=== PATIENT | male | born 1980 | race Caucasian/White ===

== ENCOUNTER 2021-04-04 18:06 | Emergency (ER) | payer SELFPAY ==
[2021-04-04] MEDS ORDERED: Lidocaine 1% (PF) 30 ML VIAL ONE (20:39)
[2021-04-04] MEDS ORDERED: Diazepam 5 MG TAB ONE (20:39)
[2021-04-04] MEDS ORDERED: Triple Antibiotic Oint 1 GM Packet ONE (22:30)
== END 2021-04-04 22:41 | disposition home or self-care (01) ==
LOC: CSHERS 18:06
DX: S91.311A Laceration without foreign body, right foot, initial encounter (principal); F17.210 Nicotine dependence, cigarettes, uncomplicated; W26.0XXA Contact with knife, initial encounter
CPT/HCPCS: J2001

== ENCOUNTER 2023-02-10 13:52 | Emergency (ER) | payer SELFPAY ==
[~2023-02-10 13:52] MED LIST: Iopamidol 300 61% 100 ML VIAL FS ONE
[2023-02-10] MEDS ORDERED: Ketorolac Tromethamine 30 MG/ML VIAL ONE (14:37)
[2023-02-10 15:00] LABS: #Eosinphils 0.2 10x3/uL (0.0-0.5); #Monocytes 0.5 10x3/uL (0.0-1.1); #Neutrophils 4.5 10x3/uL (1.5-8.4); %Basophils 0.5 % (0.0-2.0); %Eosinophils 2.5 % (0.0-6.0); %Lymphocytes 20.6 % (18.0-47.0); %Monocytes 7.1 % (0.0-10.0); %Neutrophils 69.1 % (40.0-75.0); Hematocrit 43.9 % (38.8-50.0); Mean Corpuscular HGB CONC 34.2 g/dL (32.0-36.0); Mean Corpuscular Hemoglobin 32.2 pg (27.0-33.0); Mean Corpuscular Volume 94.2 fl (81.2-95.1); Mean Platelet Volume 8.5 fl (7.4-10.4); Platelet Count 300 10x3/uL (150-450); RBC Distribution Width 12.9 % (11.5-14.5); Red Blood Cell (RBC) Count 4.66 10x6/uL (4.32-5.72); White Blood Cell (WBC) Count 6.5 10x3/uL (3.5-10.5)
[2023-02-10 15:04] LABS: Bilirubin Neg (Negative); Blood, Urine Negative (Negative); Clarity Clear (Clear); Glucose, Urine (Dipstick) Normal (Negative); Ketone, Urine Negative (Negative); Leukocyte Negative (Negative); Nitrite Negative (Negative); Protein, Urine (Dipstick) 30 mg/dl (Neg-Trace); Specific Gravity, Urine 1.025 (1.005-1.030); Urobilinogen Normal mg/dL (Less than 2)
[2023-02-10 15:33] LABS: ALT (SGPT) 32 U/L (8-55); AST (SGOT) 29 U/L (5-34); Albumin 4.3 g/dL (3.5-5.0); Alkaline Phosphatase 60 U/L (40-110); Anion Gap 14 mmol/L (10-20); BUN (Urea Nitrogen) 22 mg/dL (8.9-20.6); Bilirubin, Total 0.3 mg/dL (0.2-1.2); Calc. Creatinine Clearance 0 mL/min (70-130); Calcium 9.3 mg/dL (7.8-10.44); Carbon Dioxide 21 mmol/L (22-29); Chloride 106 mmol/L (98-107); Estimated GFR 112; Globulin 2.4 g/dL (2.4-3.5); Glucose 112 mg/dL (70-105); Potassium 3.9 mmol/L (3.5-5.1); Protein, Total 6.7 g/dL (6.0-8.3); Sodium 137 mmol/L (136-145)
[2023-02-10 15:34] LABS: CAUTI Indications for Culture Pelvic or flank pain; RBC/HPF None Seen HPF (0-3)
[2023-02-10 15:36] LABS: Bacteria/HPF Rare-Few HPF (None Seen); Squamous Epithelial 0-3 HPF (0-3); WBC/HPF 0-3 HPF (0-3)
[2023-02-10 15:37] LABS: Urine Culture Reflex No No
== END 2023-02-10 17:28 | disposition home or self-care (01) ==
LOC: CSHERS 13:52
DX: M54.41 Lumbago with sciatica, right side (principal); F17.210 Nicotine dependence, cigarettes, uncomplicated
CPT/HCPCS: 72132; 80053; 81001; 85025; 86140; 96374; J1885; Q9967

== ENCOUNTER 2023-03-06 17:27 | Emergency (ER) | payer SELFPAY ==
[2023-03-06] MEDS ORDERED: Ketorolac Tromethamine 30 MG/ML VIAL ONE (20:02)
[2023-03-06] MEDS ORDERED: Cyclobenzaprine 10 MG TAB ONE (20:03)
[2023-03-06 20:38] LABS: Bilirubin Neg (Negative); Blood, Urine 10 (Negative); Clarity Clear (Clear); Glucose, Urine (Dipstick) Normal (Negative); Ketone, Urine Negative (Negative); Leukocyte Negative (Negative); Nitrite Negative (Negative); Protein, Urine (Dipstick) Negative (Neg-Trace); Urobilinogen Normal mg/dL (Less than 2)
[2023-03-06 20:58] LABS: RBC/HPF 0-3 HPF (0-3)
[2023-03-06 20:59] LABS: Bacteria/HPF 1+ HPF (None Seen); CAUTI Indications for Culture Pelvic or flank pain; Calcium Oxalate Crystals 1+ HPF (None Seen); Mucous/LPF 3+ LPF (<2+); Squamous Epithelial 0-3 HPF (0-3); WBC/HPF 0-3 HPF (0-3)
[2023-03-06 21:00] LABS: Urine Culture Reflex No No
== END 2023-03-06 21:25 | disposition home or self-care (01) ==
LOC: CSHERS 17:27
DX: M54.41 Lumbago with sciatica, right side (principal); F17.210 Nicotine dependence, cigarettes, uncomplicated
CPT/HCPCS: 74176; 81001; 96372; J1885